=== PATIENT | male | born 2000 | race Caucasian/White ===

== ENCOUNTER 2018-10-24 16:58 | Emergency (ER) | payer OTHER ==
[~2018-10-24] VITALS: Ht 165.1 cm; Wt 69.9 kg
[2018-10-24 16:59] VITALS: Ht 165.1 cm; Wt 69.9 kg
[2018-10-24 19:28] VITALS: BP 114/73
== END 2018-10-24 19:28 | disposition home or self-care (01) ==
LOC: ED 16:58
DX: M25.462 Effusion, left knee (principal); M25.461 Effusion, right knee; M25.551 Pain in right hip
CPT/HCPCS: J1885; J7030

== ENCOUNTER 2018-10-25 15:35 | Emergency (ER) | payer OTHER ==
[~2018-10-25] VITALS: Ht 162.6 cm; Wt 69.9 kg
[2018-10-25 15:41] VITALS: Ht 162.6 cm; Wt 69.9 kg
[2018-10-25 19:26] VITALS: BP 105/62
== END 2018-10-25 19:27 | disposition home or self-care (01) ==
LOC: ED 15:35
DX: M25.562 Pain in left knee (principal); M25.561 Pain in right knee